=== PATIENT | female | born 1980 | race Caucasian/White ===

== ENCOUNTER 2017-05-09 10:07 | Emergency (ER) | payer OTHER ==
[~2017-05-09] VITALS: Ht 165.1 cm; Wt 101.7 kg
[2017-05-09 10:21] VITALS: BP 117/75
[2017-05-09] MEDS ORDERED: PREDNISONE20 MG PO (10:36)
== END 2017-05-09 11:07 | disposition home or self-care (01) ==
LOC: EME 10:07
DX: O99.711 Diseases of the skin and subcutaneous tissue complicating pregnancy, first trimester (principal); L50.6 Contact urticaria; L25.9 Unspecified contact dermatitis, unspecified cause; O99.331 Smoking (tobacco) complicating pregnancy, first trimester; O09.511 Supervision of elderly primigravida, first trimester; Z3A.01 Less than 8 weeks gestation of pregnancy
CPT/HCPCS: 99281; 99284; J7512

== ENCOUNTER 2018-01-01 08:14 | Inpatient (IN) | payer OTHER ==
[2018-01-01] VITALS (15 sets, daily range): BP systolic 120–161; BP diastolic 59–100
[~2018-01-01] VITALS: Ht 165.1 cm; Wt 125.0 kg
[~2018-01-01 08:14] MED LIST: PREDNISONE20 MG PO
[2018-01-01 09:15] LABS: BASOPHIL (%) 0.4 % (0-1); EOSINOPHIL (%) 0.9 % (0-5); EOSINOPHIL COUNT 0.1 K/uL (0-0.3); HEMATOCRIT 35.7 % (36.0-46.0); HEMOGLOBIN 12.3 G/DL (11.9-15.5); IMMATURE GRANULOCYTE (%) 0.4 % (0.0-0.7); LYMPHOCYTE (%) 21.7 % (15-42); LYMPHOCYTE COUNT 1.9 K/uL (1.0-2.8); MCH 30.8 PG (29.0-34.0); MCHC 34.5 G/DL (30.0-36.0); MCV 89.3 FL (83-99); MONOCYTE (%) 6.8 % (3-12); MONOCYTE COUNT 0.6 K/uL (0-0.8); NEUTROPHIL (%) 69.8 % (45-76); NEUTROPHIL COUNT 6.2 K/uL (1.8-6.4); PLATELET COUNT 225 K/uL (156-360); RBC DIS.WIDTH-SD 42.1 % (39-53); WHITE BLOOD COUNT 8.9 K/uL (4.1-10.2)
[2018-01-01] MEDS ORDERED: VITAFOL-OB+DHA1 EACH PO (09:19)
[2018-01-01] MEDS ORDERED: LEVO-T200 MCG PO (09:21)
[2018-01-01 10:40] LABS: AMPHETAMINE NEGATIVE (500 ng/mL); BARBITURATES NEGATIVE (200 ng/mL); BENZODIAZEPINES NEGATIVE (150 ng/mL); BUPRENORPHINE NEGATIVE (10 ng/mL); COCAINE NEGATIVE (150 ng/mL); METHADONE NEGATIVE (200 ng/mL); METHAMPHETAMINE NEGATIVE (500 ng/mL); OPIATES (MORPHINE) NEGATIVE (100 ng/mL); OXYCODONE NEGATIVE (100 ng/mL); PHENCYCLIDINE NEGATIVE (25 ng/mL); PROPOXYPHENE NEGATIVE (300 ng/mL); THC CANNABINOIDS NEGATIVE (50 ng/mL); TRICYCLIC ANTIDEPRESSANTS NEGATIVE (300 ng/mL)
[2018-01-02 06:53] LABS: BASOPHIL (%) 0.3 % (0-1); EOSINOPHIL (%) 0.4 % (0-5); EOSINOPHIL COUNT 0.1 K/uL (0-0.3); HEMATOCRIT 33.1 % (36.0-46.0); HEMOGLOBIN 11.4 G/DL (11.9-15.5); IMMATURE GRANULOCYTE (%) 0.5 % (0.0-0.7); LYMPHOCYTE (%) 16.6 % (15-42); LYMPHOCYTE COUNT 2.4 K/uL (1.0-2.8); MCHC 34.4 G/DL (30.0-36.0); MCV 89.9 FL (83-99); MONOCYTE (%) 7.6 % (3-12); MONOCYTE COUNT 1.1 K/uL (0-0.8); NEUTROPHIL (%) 74.6 % (45-76); NEUTROPHIL COUNT 10.7 K/uL (1.8-6.4); PLATELET COUNT 212 K/uL (156-360); RBC DIS.WIDTH-CV 13.2 % (11.8-14.6); RBC DIS.WIDTH-SD 43.1 % (39-53); RED BLOOD COUNT 3.68 M/uL (3.80-5.20); WHITE BLOOD COUNT 14.3 K/uL (4.1-10.2)
[2018-01-02 23:04] VITALS: BP 114/57
[2018-01-03] MEDS ORDERED: IBUPROFEN800 MG PO (09:38)
[2018-01-03] MEDS ORDERED: LEVOTHYROXINE150 MCG PO (09:39)
== END 2018-01-03 15:11 | disposition home or self-care (01) | DRG 775 ==
LOC: LDRP-OP 08:14 → 2WEST 08:15 → LDRP-OP 08:31 → 2WEST 19:41 → LDRP-OP 02-05 16:58
PROVIDERS: Advanced Practice Midwife
PROC: 3E0P7VZ Introduction of Hormone into Female Reproductive, Via Natural or Artificial Opening (ICD-10-PCS; principal; 2018-01-01)
PROC: 10907ZC Drainage of Amniotic Fluid, Therapeutic from Products of Conception, Via Natural or Artificial Opening (ICD-10-PCS; principal; 2018-01-01)
PROC: 10E0XZZ Delivery of Products of Conception, External Approach (ICD-10-PCS; principal; 2018-01-01)
DX: O99.214 Obesity complicating childbirth (principal); O99.284 Endocrine, nutritional and metabolic diseases complicating childbirth; O99.513 Diseases of the respiratory system complicating pregnancy, third trimester; E66.01 Morbid (severe) obesity due to excess calories; Z68.36 Body mass index [BMI] 36.0-36.9, adult; Z37.0 Single live birth; Z3A.39 39 weeks gestation of pregnancy; J45.909 Unspecified asthma, uncomplicated; E03.9 Hypothyroidism, unspecified
CPT/HCPCS: 85025